=== PATIENT | male | born 1975 | race Caucasian/White ===

== ENCOUNTER → 2017-04-04 | Outpatient (CLI) | payer OTHER ==
[~2017-04-04] MED LIST: AMBIEN 5 MG TABL5 M1 PO; ATIVAN0.5 MG PO; FLOMAX0.4 MG PO; NORVASC5 MG PO; PAXIL10 MG PO; PERCOCET PO; REMERON15 MG PO; REQUIP0.5 MG PO; UROCIT-K10 ME1 PO
== END ==
LOC: LITH 06:43
DX: N20.0 Calculus of kidney (principal)